=== PATIENT | female | born 1995 | race Caucasian/White ===

== ENCOUNTER 2017-01-02 23:49 | Outpatient (CLI) | payer MEDICAID ==
[~2017-01-02] VITALS: Ht 154.9 cm; Wt 76.7 kg
[~2017-01-02 23:49] MED LIST: AMOXICILLIN500 M2 PO; CLINDAMYCIN HC300 MG PO; IRON TABLETS325 MG PO; PRENATAL PLUS1 TA1 PO; PROPRANOLOL HCL20 MG PO; ZANTAC 150150 MG PO
[2017-01-03 00:14] VITALS: BP 122/78
== END 2017-01-03 06:35 | disposition home or self-care (01) ==
LOC: OBOUT 23:49 → OB 23:49 → OBOUT 01-03 06:35
DX: O60.03 Preterm labor without delivery, third trimester (principal); Z3A.39 39 weeks gestation of pregnancy